=== PATIENT | female | born 1960 | race American Indian/Alaskan Native ===

== ENCOUNTER 2019-02-09 07:17 | Emergency (ER) | payer MEDICARE ==
[2019-02-09 07:38] VITALS: BP 131/80; PULSE 72; RESP 18; TEMP 97.7; O2SAT 98
[2019-02-09] MEDS ORDERED: Lidocaine 5% Patch TD STA (07:56)
--- NOTE | 2019-02-09 13:26 | ED PDOC ---
Arrival/HPI - General Chief Complaint: Lower Extremity Problem/Injury Time Seen by Provider: 02/09/19 07:20 Historian: Patient - History of Present Illness Narrative History of Present Illness (Text): 02/09/19 8:01 A 58 year old female with no significant past medical history presents to the emergency department complaining of chronic left sciatic pain for the past few days. Patient reports taking Tylenol for pain. Patient does not want any narcotics because she is a recovering addict. Patient denies any bowel/bladder disfunction, saddle anesthesia, fever, shortness of breath, chest pain, or any other complaints. PMD: Samina Rosas Time/Duration: Other (few days) Symptom Onset: Gradual Symptom Course: Unchanged Activities at Onset: Light Context: Home Past Medical History - Provider Review Nursing Documentation Reviewed: Yes - Infectious Disease Hx of Infectious Diseases: None - Reproductive Menopause: Yes - Cardiac Hx Cardiac Disorders: Yes Hx Hypertension: Yes - Endocrine/Metabolic Hx Diabetes Mellitus Type 2: Yes - Psychiatric Hx Substance Use: No - Anesthesia Hx Anesthesia Reactions: No Family/Social History - Physician Review Nursing Documentation Reviewed: Yes Family/Social History: No Known Family HX Smoking Status: Unknown If Ever Smoked Hx Alcohol Use: No Hx Substance Use: No Allergies/Home Meds Allergies/Adverse Reactions: Allergies seasonal Allergy (Uncoded 02/09/19 07:38) CONGESTION Review of Systems - Review of Systems Constitutional: absent: Fevers Respiratory: absent: SOB Cardiovascular: absent: Chest Pain Genitourinary Female: absent: Other (no bowel/bladder disfunction) Musculoskeletal: Other (left sciatic pain; no saddle anesthesia) Physical Exam Vital Signs Reviewed: Yes Vital Signs Temp Pulse Resp BP Pulse Ox 02/09/19 07:34 97.7 F 72 18 131/80 98 Temperature: Afebrile Blood Pressure: Normal Pulse: Regular Respiratory Rate: Normal Appearance: Positive for: Well-Appearing, Non-Toxic Pain Distress: Mild Mental Status: Positive for: Alert and Oriented X 3 - Systems Exam Head: Present: Atraumatic, Normocephalic Pupils: Present: PERRL Extroacular Muscles: Present: EOMI Conjunctiva: Present: Normal Respiratory/Chest: Present: Clear to Auscultation, Good Air Exchange. No: Respiratory Distress, Accessory Muscle Use Cardiovascular: Present: Regular Rate and Rhythm, Normal S1, S2. No: Murmurs Abdomen: No: Tenderness, Distention, Peritoneal Signs Back: Present: Normal Inspection Upper Extremity: Present: Normal Inspection. No: Cyanosis, Edema Lower Extremity: Present: Normal Inspection, Other (positive straight leg test). No: Edema Neurological: Present: GCS=15, CN II-XII Intact, Speech Normal Skin: Present: Warm, Dry, Normal Color. No: Rashes Psychiatric: Present: Alert, Oriented x 3, Normal Insight, Normal Concentration Medical Decision Making ED Course and Treatment: 02/09/19 8:01 Impression: 58 year old female presents to the emergency department complaining of chronic left sciatic pain. Plan: -- Toradol -- Lidoderm -- Reassess and disposition Progress Notes: - Medication Orders Current Medication Orders: Discontinued Medications Ketorolac Tromethamine (Toradol) 60 mg IVP STAT STA Stop: 02/09/19 07:57 Last Admin: 02/09/19 08:17 Dose: 60 mg MAR Pain Assessment Document 02/09/19 08:17 BB (Rec: 02/09/19 08:17 [id number] Pain Reassessment Is this a pain reassessment? No Sleep Is patient sleeping during reassessment? No Presence of Pain Presence of Pain Yes Pain Scale Used Protocol: PSCALES Pain Scale Used Numeric Location Left, Right or Bilateral Left Pain Location Body Site Hip Description Description Constant Intensity of Pain at present 8 Pain Behavior Withdrawal from Touch Grasping Site Rubbing Site Restlessness Facial Grimacing IVP Administration Document 02/09/19 08:17 BB (Rec: 02/09/19 08:17 [id number] Charges for Administration # of IVP Administrations 1 Lidocaine (Lidoderm) 1 ea TD STAT STA Stop: 02/09/19 07:57 Last Admin: 02/09/19 08:16 Dose: 1 ea MAR Transdermal Patch Site Document 02/09/19 08:16 BB (Rec: 02/09/19 08:17 [id number] Transdermal Patch Site Transdermal Patch Site Left Hip - Scribe Statement The provider has reviewed the documentation as recorded by the Julioibmichael Watkins All medical record entries made by the Scribe were at my direction and personally dictated by me. I have reviewed the chart and agree that the record accurately reflects my personal performance of the history, physical exam, medical decision making, and the department course for this patient. I have also personally directed, reviewed, and agree with the discharge instructions and disposition. Disposition/Present on Arrival - Present on Arrival Any Indicators Present on Arrival: No History of DVT/PE: No History of Uncontrolled Diabetes: No Urinary Catheter: No History of Decub. Ulcer: No History Surgical Site Infection Following: None - Disposition Have Diagnosis and Disposition been Completed?: Yes Diagnosis: Sciatic leg pain Disposition: HOME/ ROUTINE Disposition Time: 07:55 Condition: GOOD Discharge Instructions (ExitCare): Sciatica (DC) Additional Instructions: LYNDA FUENTES, thank you for letting us take care of you today. Your provider was Derek Mitchell DO and you were treated for LEG PAIN. The emergency medical care you received today was directed at your acute symptoms. If you were prescribed any medication, please fill it and take as directed. It may take several days for your symptoms to resolve. Return to the Emergency Department if your symptoms worsen, do not improve, or if you have any other problems. Please contact your doctor or call one of the physicians/clinics you have been referred to that are listed on the Patient Visit Information form that is included in your discharge packet. Bring any paperwork you were given at discharge with you along with any medications you are taking to your follow up visit. Our treatment cannot replace ongoing medical care by a primary care provider outside of the emergency department. Thank you for allowing the [facility] team to be part of your care today. Follow up with your primary care doctor early next week for re-evaluation and further management. Prescriptions: Cyclobenzaprine [Cyclobenzaprine HCl] 10 mg PO Q8 PRN #20 tab PRN Reason: Muscle Spasm Ibuprofen [Motrin] 600 mg PO Q6 PRN #20 tab PRN Reason: Pain, Moderate (4-7) Referrals: Samina Weiner MD [Family Provider] - Follow up with primary Forms: [employer] ([place])
== END 2019-02-09 08:30 | disposition home or self-care (01) ==
LOC: MERGE 07:17 → ED 07:17
DX: M54.32 Sciatica, left side (principal)
CPT/HCPCS: 96374; 99283; J1885